=== PATIENT | female | born 1980 | race American Indian/Alaskan Native ===

== ENCOUNTER 2019-03-02 18:58 | Inpatient (IN) | payer OTHER ==
[~2019-03-02] VITALS: Ht 160 cm; Wt 68.0 kg
[2019-03-02 19:17] VITALS: BP_SYST 152
[2019-03-02 20:16] LABS: BILIRUBIN,URINE NEGATIVE (NEGATIVE); CLARITY/URINE CLEAR (CLEAR); COLOR,URINE YELLOW (YELLOW); GLUCOSE,URINE NEGATIVE (NEGATIVE); KETONES,URINE NEGATIVE (NEGATIVE); LEUKOCYTE ESTERASE ,URINE 1+ (NEGATIVE); NITRITE, URINE NEGATIVE (NEGATIVE); PROTEIN URINE NEGATIVE (NEGATIVE); UROBILINOGEN,URINE 0.2 (0.2-1.0)
[2019-03-02 20:22] LABS: BASOPHILS % (AUTO) 0.4 % (0.0-2.0); EOSINOPHILS # (AUTO) 0.3 K/uL (0.0-0.4); EOSINOPHILS % (AUTO) 4.1 % (0.0-4.0); HEMATOCRIT 32.8 % (36-48); HEMOGLOBIN 10.3 g/dL (12.0-16.0); LYMPHOCYTES # (AUTO) 1.5 K/uL (1.0-5.5); LYMPHOCYTES % (AUTO) 21.4 % (20.5-51.5); MEAN CORPUSCULAR HEMOGLOBIN 25 pg (27-31); MEAN CORPUSCULAR HGB CONC 31 % (32-36); MEAN CORPUSCULAR VOLUME 78 fL (79.0-98.0); MONOCYTES # (AUTO) 0.4 K/uL (0.0-1.0); MONOCYTES % (AUTO) 4.9 % (1.7-9.3); NEUTROPHILS % (AUTO) 69.2 % (40.0-70.0); PLATELET COUNT (AUTO) 257 K/uL (130-430); WHITE BLOOD COUNT (AUTO) 7.2 K/uL (4.8-10.8)
[2019-03-02 20:30] LABS: BLOOD, URINE TRACE (NEGATIVE)
[2019-03-02 20:31] LABS: BACTERIA,URINE FEW /HPF (None Seen); MUCUS,URINE None Seen /LPF (None Seen); RBC,URINE 0-3 /HPF (0-3)
[2019-03-02] MEDS ORDERED: MORPHINE 4 MG/ML INJ. SYRINGE IVP ONE (20:45)
[2019-03-02] MEDS ORDERED: NACL 0.9% 1,000 ML IV ONE (20:45)
[2019-03-02] MEDS ORDERED: cefTRIAXone 1 GM IVPB PREMIX 50 ML IV ONE (20:45)
[2019-03-02] MEDS ORDERED: ACETAMINOPHEN 325 MG TABLET PO PRN (22:00)
[2019-03-02] MEDS ORDERED: ONDANSETRON HCL 4 MG/2 ML VIAL IVP PRN (22:00)
[2019-03-02] MEDS ORDERED: HYDROcodone/ACETAMIN 5-325 MG TAB (NORCO/ VICODIN) PO PRN (22:00)
[2019-03-02 22:29] LABS: PROTHROMBIN TIME 9.8 SECS (9.5-12.5)
[2019-03-02 22:34] LABS: BARBITURATE, URINE NEGATIVE (NEG <=200); BENZODIAZEPINE, URINE POSITIVE (NEG <=150); CANNABINOID, URINE NEGATIVE (NEG <=50); COCAINE, URINE NEGATIVE (NEG <=150); METHAMPHETAMINES SCREEN,URINE NEGATIVE (NEG <=500); OPIATE, URINE POSITIVE (NEG <=100); PHENCYCLIDINE SCREEN,URINE NEGATIVE (NEG <=25); UR TRICYCLIC ANTIDEPRESSANTS NEGATIVE (NEG <=300); URINE AMPHETAMINE NEGATIVE (NEG <=500); URINE METHADONE NEGATIVE (NEG <=200); URINE OXYCODONE SCREEN NEGATIVE (NEG <=100); URINE PROPOXYPHENE SCREEN NEGATIVE (NEG <=300)
[2019-03-02 22:39] LABS: PHOSPHORUS 3.5 mg/dL (2.7-4.5)
[2019-03-02 23:08] VITALS: BP_SYST 140
[2019-03-02] MEDS: NACL 0.9% 1,000 ML IV SCH (23:31)
[2019-03-03] VITALS: BP_SYST 135
[2019-03-03] MEDS: MORPHINE 2 MG/ML INJ. SYRINGE IVP PRN ×3 (00:19→11:07)
[2019-03-03 01:23] LABS: THYROID STIMULATING HORMONE 1.21 uIu/mL (0.36-3.74)
[2019-03-03 01:44] LABS: CALCIUM 8.2 mg/dL (8.4-11.0); CREATININE 0.65 mg/dL (0.55-1.30); POTASSIUM 3.7 mmol/L (3.5-5.1); TOTAL BILIRUBIN 0.2 mg/dL (0.0-1.0)
[2019-03-03 07:13] LABS: BASOPHILS % (AUTO) 0.7 % (0.0-2.0); EOSINOPHILS # (AUTO) 0.4 K/uL (0.0-0.4); EOSINOPHILS % (AUTO) 5.7 % (0.0-4.0); HEMATOCRIT 29.1 % (36-48); HEMOGLOBIN 9.1 g/dL (12.0-16.0); LYMPHOCYTES # (AUTO) 2.2 K/uL (1.0-5.5); LYMPHOCYTES % (AUTO) 32.6 % (20.5-51.5); MEAN CORPUSCULAR HEMOGLOBIN 25 pg (27-31); MEAN CORPUSCULAR HGB CONC 31 % (32-36); MONOCYTES # (AUTO) 0.4 K/uL (0.0-1.0); MONOCYTES % (AUTO) 6.4 % (1.7-9.3); NEUTROPHILS # (AUTO) 3.7 K/uL (1.8-7.7); NEUTROPHILS % (AUTO) 54.6 % (40.0-70.0); PLATELET COUNT (AUTO) 222 K/uL (130-430); RED BLOOD CELL COUNT(AUTO) 3.66 MIL/uL (4.2-6.2); RED CELL DISTRIBUTION WIDTH 18.8 % (9.0-15.0); WHITE BLOOD COUNT (AUTO) 6.7 K/uL (4.8-10.8)
[2019-03-03 07:32] LABS: POTASSIUM 3.8 mmol/L (3.5-5.1)
[2019-03-03 07:50] LABS: CREATININE 0.56 mg/dL (0.55-1.30)
[2019-03-03 07:55] LABS: MEAN CORPUSCULAR VOLUME 80 fL (79.0-98.0)
[2019-03-03 08:00] VITALS: BP_SYST 124
[2019-03-03] MEDS: NACL 0.9% 1,000 ML IV SCH (08:16)
[2019-03-03 08:52] LABS: CALCIUM 7.6 mg/dL (8.4-11.0)
[2019-03-03] MEDS ORDERED: DOCUSATE SODIUM 100 MG CAPSULE PO SCH (09:00)
[2019-03-03] MEDS ORDERED: cefTRIAXone 1 GM in D5W 50 ML IV SCH (09:00)
[2019-03-03] MEDS ORDERED: TAMSULOSIN HCL 0.4 MG CAP PO SCH (09:00)
[2019-03-03 12:00] VITALS: BP_SYST 133
[2019-03-03] MEDS ORDERED: HYDR-4272 PO (13:58)
[2019-03-03] MEDS ORDERED: SULF1TAB3 PO (13:58)
[2019-03-03 14:28] VITALS: BP_SYST 135
== END 2019-03-03 15:36 | disposition home or self-care (01) | DRG 465 ==
LOC: SED 18:58 → SMU 21:45
PROVIDERS: ADMIT Student in an Organized Health Care Education/Training Program; ATTEND Student in an Organized Health Care Education/Training Program
DX: N13.30 Unspecified hydronephrosis (principal); N39.0 Urinary tract infection, site not specified; N12 Tubulo-interstitial nephritis, not specified as acute or chronic
CPT/HCPCS: 36415; 71045; 80048; 80053; 80061; 80307; 81000-TC; 83036; 83735-TC; 83880; 84100-TC; 84443-TC; 84484; 85025; 85610-TC; 85730-TC; 87040-TC; 87081; 87086; 96365; 96375; 99285; J0696; J2270; J2405; J7030; J7060

== ENCOUNTER 2019-03-06 00:53 | Inpatient (IN) | payer OTHER ==
[~2019-03-06] VITALS: Ht 160 cm; Wt 71.2 kg
[~2019-03-06 00:53] MED LIST: HYDR-4272 PO; SULF1TAB3 PO
[2019-03-06 01:10] VITALS: BP_SYST 139
--- NOTE | 2019-03-06 01:12 | NUR ---
Patient to ER bed 4 for evaluation. Side rails up.
--- NOTE | 2019-03-06 01:13 | NUR ---
Patient brought in with complaining of right flank starting at 1900 with 2 episodes of vomitting. Pain 10/10. Patient was admitted on for kidney stone obstruction reports she was discharged because kidney stone unobstructed. No other complaints/injuries per patient or as noted. Will continue to monitor.
--- NOTE | 2019-03-06 01:15 | NUR ---
ER Dr. Ocampo at bedside examining patient.
[2019-03-06] MEDS ORDERED: NACL 0.9% 1,000 ML IV ONE ×3 (01:40→02:15)
[2019-03-06] MEDS ORDERED: ONDANSETRON HCL 4 MG/2 ML VIAL IVP ONE (01:45)
[2019-03-06] MEDS ORDERED: KETOROLAC TROMETHAMINE 30 MG VIAL IVP ONE (01:45)
--- NOTE | 2019-03-06 01:50 | NUR ---
# 20 gauge angiocath placed to LAC. Use of asceptic technique. Opsite placed over site. Blood return noted. Blood for lab drawn from site. Flushed with 10 cc of normal saline. No evidence of infiltration noted. Patient tolerated well.
[2019-03-06] MEDS ORDERED: MORPHINE 4 MG/ML INJ. SYRINGE IVP ONE ×2 (02:15→03:00)
[2019-03-06] MEDS ORDERED: DIPHENHYDRAMINE INJ 50 MG/ML VIAL IVP ONE ×2 (02:15→03:00)
[2019-03-06 02:28] LABS: CALCIUM 8.6 mg/dL (8.4-11.0); CREATININE 0.82 mg/dL (0.55-1.30); POTASSIUM 3.6 mmol/L (3.5-5.1)
[2019-03-06 02:29] LABS: BASOPHILS % (AUTO) 0.5 % (0.0-2.0); EOSINOPHILS # (AUTO) 0.4 K/uL (0.0-0.4); EOSINOPHILS % (AUTO) 3.9 % (0.0-4.0); HEMATOCRIT 34.9 % (36-48); LYMPHOCYTES # (AUTO) 2.3 K/uL (1.0-5.5); LYMPHOCYTES % (AUTO) 24.3 % (20.5-51.5); MEAN CORPUSCULAR HEMOGLOBIN 25 pg (27-31); MEAN CORPUSCULAR HGB CONC 32 % (32-36); MEAN CORPUSCULAR VOLUME 78 fL (79.0-98.0); MONOCYTES # (AUTO) 0.4 K/uL (0.0-1.0); MONOCYTES % (AUTO) 4.4 % (1.7-9.3); NEUTROPHILS # (AUTO) 6.3 K/uL (1.8-7.7); NEUTROPHILS % (AUTO) 66.9 % (40.0-70.0); PLATELET COUNT (AUTO) 313 K/uL (130-430); RED BLOOD CELL COUNT(AUTO) 4.46 MIL/uL (4.2-6.2); RED CELL DISTRIBUTION WIDTH 18.8 % (9.0-15.0); WHITE BLOOD COUNT (AUTO) 9.4 K/uL (4.8-10.8)
[2019-03-06 02:35] LABS: BILIRUBIN,URINE NEGATIVE (NEGATIVE); BLOOD, URINE 3+ (NEGATIVE); CLARITY/URINE CLEAR (CLEAR); COLOR,URINE YELLOW (YELLOW); GLUCOSE,URINE NEGATIVE (NEGATIVE); KETONES,URINE NEGATIVE (NEGATIVE); LEUKOCYTE ESTERASE ,URINE 3+ (NEGATIVE); NITRITE, URINE NEGATIVE (NEGATIVE); PH,URINE 7.5 (5.0-8.0); PROTEIN URINE NEGATIVE (NEGATIVE); UROBILINOGEN,URINE 0.2 (0.2-1.0)
[2019-03-06 02:42] LABS: ALBUMIN 3.7 g/dL (3.4-4.8); TOTAL BILIRUBIN 0.4 mg/dL (0.0-1.0)
--- NOTE | 2019-03-06 02:44 | NUR ---
Md notifed of pain 11/21. Patient requesting more pain medication
[2019-03-06 02:46] LABS: RBC,URINE 50-80 /HPF (0-3); WBC,URINE 20-50 /HPF (0-3)
[2019-03-06 02:47] LABS: BACTERIA,URINE FEW /HPF (None Seen); YEAST,URINE Few /HPF (None Seen)
[2019-03-06] MEDS ORDERED: cefTRIAXone 1 GM IVPB PREMIX 50 ML IV ONE (03:00)
--- NOTE | 2019-03-06 03:05 | NUR ---
Blood cultures drawn, prior to administration of antibiotic.
--- NOTE | 2019-03-06 03:11 | NUR ---
report given to RIGO Patel
[2019-03-06] MEDS ORDERED: MORPHINE 2 MG/ML INJ. SYRINGE IVP PRN ×2 (04:00→08:30)
--- NOTE | 2019-03-06 04:04 | NUR ---
adPatient will be admitted to care of Dr. Cervantes. Admitted to Med Surg unit. Will go to room 118 A. Belongings list completed. Summary report printed. Report will be given at bedside.
--- NOTE | 2019-03-06 04:05 | NUR ---
Transfer to [facility]. IV present no sign or symptom of infiltration.
--- NOTE | 2019-03-06 04:08 | NUR ---
ADMISSION: The patient, ZEYAD RAMIREZ, 38 y/o, F admitted by DR SEGAL WITH THE DIAGNOSIS OF INTRACTABLE FLANK PAIN , HYDRONEPHROSIS AND UTI TO ROOM 118 A .
[2019-03-06 04:22] VITALS: BP_SYST 116
--- NOTE | 2019-03-06 05:30 | NUR ---
Rounds Pt ambulated to the bathroom and voided. Steady gait. Back to bed. Call light within reach. To monitor.
[2019-03-06] MEDS ORDERED: KCL 20 mEq in NS 1000 mL 1,000 ML IV ONE (06:26)
[2019-03-06] MEDS: KCL 20 mEq in NS 1000 mL 1,000 ML IV SCH ×3 (06:31→18:06)
--- NOTE | 2019-03-06 06:36 | NUR ---
Closing notes Pt asleep easily arousable. No s/s distress noted. Pt states pain is better at this time 08/22. IVF started at ordered rate L. AC 20JG no s/s infiltration. CAll light within reach. To endorse to AM nurse.
--- NOTE | 2019-03-06 06:42 | NUR ---
F/U 2nd Lactic acid Called lab and spoke with Isabell to f/u 2nd lactic acid. She will call back.
--- NOTE | 2019-03-06 06:53 | NUR ---
Received call from Lab Spoke with Isabell from lab and per tech, received draw from [facility] lactic acid at 0653. To endorse to Am nurse.
--- NOTE | 2019-03-06 07:30 | NUR ---
Opening note patient resting in bed at this time, no complaints of pain. Iv patent, intact, and infusing fluids as ordered. No adverse side effects noted. No SOB. On safety and aspiration precautions, HOB kept elevated, 3 side rails up, call light within reach. Patient in stable condition. Will continue to monitor.
--- NOTE | 2019-03-06 07:46 | NUR ---
PAGED PAGED BRET DHILLON AT [phone] SPOKE WITH TYLER.
--- NOTE | 2019-03-06 08:00 | NUR ---
Pain Patient complained of continuous pain. Dr. manzo called back. new orders noted.
[2019-03-06 08:12] VITALS: BP_SYST 120
[2019-03-06] MEDS: ONDANSETRON HCL 4 MG/2 ML VIAL IVP PRN ×3 (09:15→18:20)
--- NOTE | 2019-03-06 09:30 | NUR ---
medications pain medication given as ordered, tolerated well. No nausea, no vomiting noted at this time.
--- NOTE | 2019-03-06 10:03 | NUR ---
UROLOGY CONSULT CONSULTATION PAGED REASON FOR CONSULTATION:OBSTRUCTED STENT WAS CONSULT CALLED?Y PERSON WHO WAS NOTIFIED:JASWANT CONSULTING PHYSICIAN:LUZ LUTZ LEATHER PIECE INSPECTOR SPECIALTY:UROLOGY LEATHER PIECE INSPECTOR PHONE NUMBER:[phone] REQUESTING PHYSICIAN:BRET DHILLON DOCTOR NOT CONTRACTED WITH INSURANCE
--- NOTE | 2019-03-06 11:00 | NUR ---
Rounds Patient resting in bed at this time, no complaints of pain. Iv patent, intact, and infusing fluids as ordered. No adverse side effects noted.
--- NOTE | 2019-03-06 11:13 | NUR ---
PAGED PAGED BRET DHILLON AT [phone] SPOKE WITH CANDIDO.
[2019-03-06] MEDS ORDERED: FAMOTIDINE 20 MG TABLET PO ONE (11:30)
[2019-03-06 12:00] VITALS: BP_SYST 109
[2019-03-06] MEDS: cefTRIAXone 1 GM in D5W 50 ML IV SCH (12:32)
[2019-03-06] MEDS: MORPHINE 2 MG/ML INJ. SYRINGE IVP PRN ×3 (12:35→23:21)
--- NOTE | 2019-03-06 12:35 | NUR ---
Pain Patient continued to complain of pain. Dr. manzo at bedside to increase frequency of pain medication to every 3 hours. Medication given as ordered. No adverse side effects noted.
--- NOTE | 2019-03-06 12:38 | NUR ---
CASE MANAGEMENT: REGARDING UROLOGIST CONSULT FOR DR. ANNA NOT ACCEPTING PATIENT INSURANCE. SPOKE WITH RUBEN AT ADMINISTRATION, AMOL HAS BEEN FAXED TO DR. ANNA'S OFFICE.
--- NOTE | 2019-03-06 14:11 | NUR ---
Rounds patient resting in bed at this time, no complaints of pain. IV patent, intact, and infusing fluids as ordered.
[2019-03-06] MEDS: METOCLOPRAMIDE HCL 10 MG/2 ML VIAL IVP PRN (15:50)
[2019-03-06] MEDS: HYDROmorphone 1 MG INJ. 1 MG/ML AMPUL IVP PRN ×2 (15:51→20:56)
--- NOTE | 2019-03-06 16:00 | NUR ---
Rounds patient sitting up in bed at this time, no SOB. No acute distress. Iv patent, intact, and infusing fluids as ordered. No adverse side effects noted.
[2019-03-06 16:56] VITALS: BP_SYST 142
--- NOTE | 2019-03-06 18:20 | NUR ---
pain/ nausea patient complaining of pain and nausea. medications given as ordered. no adverse side effects noted.
--- NOTE | 2019-03-06 18:45 | NUR ---
Closing note patient resting in bed at this time, no complaints of pain. Iv patent, intact, and infusing fluids as ordered. No adverse side effects noted. No SOB. On safety and aspiration precautions, HOB kept elevated, 3 side rails up, call light within reach. Patient in stable condition. All needs met.
[2019-03-06 20:54] VITALS: BP_SYST 129
--- NOTE | 2019-03-06 20:54 | NUR ---
Opening notes Pt resting in bed, no s/s distress noted. VSS, afebrile. Call light within reach. Bed low, locked, siderails up x2. Will continue to monitor.
[2019-03-07] VITALS: BP_SYST 128
[2019-03-07] MEDS: ONDANSETRON HCL 4 MG/2 ML VIAL IVP PRN ×4 (00:44→22:19)
--- NOTE | 2019-03-07 00:44 | NUR ---
Nausea Pt awake, resting in bed c/o nausea, medicated with Zofran 4mg IVP as needed. Call light within reach. To monitor.
[2019-03-07] MEDS: HYDROmorphone 1 MG INJ. 1 MG/ML AMPUL IVP PRN ×5 (01:57→19:49)
--- NOTE | 2019-03-07 01:57 | NUR ---
Pain med Pt ambulates to the bathroom. c/o severe rt flank pain, medicated with Dilaudid 1mg IVP as needed. IVF infusing at ordered rate L. AC 20G clear and patent. Call light within reach. at bedside. To monitor.
--- NOTE | 2019-03-07 05:00 | NUR ---
Nausea Pt awake, quiet, c/o pain, nausea, and feeling hot. Temp checked 99.5. Encouraged pt to drink and water given. Pt informed Dilaudid is not due yet for pain. Pt agreeable. Pt medicated with Reglan 10mg IVP as needed for nausea. Call light within reach. Safety measures in place. To monitor.
[2019-03-07] MEDS: METOCLOPRAMIDE HCL 10 MG/2 ML VIAL IVP PRN ×2 (05:03→17:29)
[2019-03-07] MEDS: KCL 20 mEq in NS 1000 mL 1,000 ML IV SCH ×2 (05:03→20:00)
--- NOTE | 2019-03-07 05:25 | NUR ---
CLOSING NOTES/PAIN MED PT AWAKE, SITTING IN BED, TEARFUL C/O 10/10 FLANK PAIN. MEDICATED WITH DILAUDID 1MG IVP NEEDED. IVF INFUSING AT ORDERED RATE L. AC 20G NO S/S INFILTRATION. CALL LIGHT WITHIN REACH. ALL NEEDS MET THROUGHOUT THE NIGHT. BED LOW, LOCKED IN POSITION. TO ENDORSE TO AM NURSE.
[2019-03-07 07:29] VITALS: BP_SYST 134
[2019-03-07] MEDS: MORPHINE 2 MG/ML INJ. SYRINGE IVP PRN ×4 (07:56→22:20)
--- NOTE | 2019-03-07 08:00 | NUR ---
ASSUMPTION OF CARE: RECEIVED PT A/A/OX4, DX:ALTERATION IN ELIMINATION, R/T HYDRONEPHROSIS, UTI, INTRACTABLE FLANK PAIN. PT IS LYING IN BED RESTING WITH AT BEDSIDE C/O FLANK PAIN 8/10 VIA NUMERIC SCALE DESCRIBED INTERMITTENT, ACHING SENSATION, THAT IS CAUSING NAUSEA ALSO, MORPHINE 3 MG GIVEN IVP, TOLERATED WELL, IV SITE INTACT, PATENT, NO REDNESS OR SWELLING, AFEBRILE, SKIN INTACT, BREATH SOUNDS ARE CLEAR, BREATHING UNLABORED, ORIENTED TO UNIT, CALL LIGHT PLACED WITHIN REACH, WILL CONT' TO MONITOR AND ASSESS.
--- NOTE | 2019-03-07 08:10 | NUR ---
PAIN: PT C/O PAIN 8/10 VIA NUMERIC SCALE, WAS MEDICATED WITH MORPHINE 3MG IVP, AND ZOFRAN 4 MG IVP FOR NAUSEA, MEDS WERE TOLERATED WELL, WILL CONT' TO MONITOR AND ASSESS.
--- NOTE | 2019-03-07 09:00 | NUR ---
MEDICAL AUTHORIZATION SPECIALIST: MORNING MEDS GIVEN, PER ORDERED BY Kam, TOLERATED WELL, WILL CONT' TO MONITOR AND ASSESS.
[2019-03-07] MEDS: FAMOTIDINE 20 MG TABLET PO SCH (09:59)
[2019-03-07] MEDS: cefTRIAXone 1 GM in D5W 50 ML IV SCH (10:37)
--- NOTE | 2019-03-07 10:40 | NUR ---
PAIN: PT C/O RIGHT FLANK PAIN 8/10 VIA NUMERIC SCALE, DESCRIBED INTERMITTENT ACHING SENSATION, MED WAS GIVEN, TOLERATED WELL, WILL CONT' TO MONITOR AND ASSESS.
--- NOTE | 2019-03-07 11:09 | NUR ---
Uro consult follow up. Spoke with Floridalma at Dr. Helm's office. Letter of Agreement (AMOL) was received. She does not know what time Dr. Helm will come.
[2019-03-07 12:06] VITALS: BP_SYST 143
--- NOTE | 2019-03-07 12:38 | NUR ---
PAIN: PT C/O RIGHT FLANK PAIN 8/10 VIA NUMERIC SCALE, DESCRIBED INTERMITTENT ACHING SENSATION, MED WAS GIVEN, TOLERATED WELL, WILL CONT' TO MONITOR AND ASSESS.
[2019-03-07 12:40] VITALS: BP_SYST 142
--- NOTE | 2019-03-07 13:30 | NUR ---
Dr. Helm refuses to see the patient: Dr. Helm is at the station. Inform him about the consult and AMOL letter. He has said that he is aware of AMOL letter, but also states"I don't want to deal with that.". Dr. Cervantes is inform, and also the rehabilitation case coordinator. They recommend to try with other urologist, if they will accept AMOL.
--- NOTE | 2019-03-07 13:43 | NUR ---
Case mgt: I rec'd vm from Claudia? difficult to hear name and she did not identify pt name in her voice mail ,requesting call back from me to [phone]--I called her without leaving pt name but asked her to call me back asap. QUINN SIERRA Addendum: 03/07/19 at 1346 by Erica Reaagn RN Correction: Above return number for Claudia is [phone]
--- NOTE | 2019-03-07 13:57 | NUR ---
Spoke with Kirstin at Dr. Elizabeth's office. She took my number and will call me back regarding possibility of paying by AMOL.
--- NOTE | 2019-03-07 14:16 | NUR ---
Spoke with Navya in administration. was told admin would approve AMOL for Dr. Elizabeth.
--- NOTE | 2019-03-07 14:19 | NUR ---
Uro consult called: spoke with Beata regarding consult (obstructed stent; ordered by Dr. Cervantes) Dr. england ribbon blocker.
--- NOTE | 2019-03-07 14:52 | NUR ---
PAIN: PT C/O RIGHT FLANK PAIN 8/10 VIA NUMERIC SCALE, DESCRIBED INTERMITTENT ACHING SENSATION, MED WAS GIVEN, TOLERATED WELL, WILL CONT' TO MONITOR AND ASSESS.
--- NOTE | 2019-03-07 15:00 | NUR ---
: SPOKE WITH FROM [facility], STATED THAT PATIENT MAY BE DISCHARGED BY HIS STANDARDS AND F/U OUT PT WITH HER UROLOGIST. ALSO, IF DURING HER ADMISSION AT [facility] FEVER OR WBC'S GREATER THAN 18.0 OCCUR, ACUTE INTERVENTION WOULD BE NECESSARY, AND TO LET PRIMARY CARE PROVIDER KNOW. MEDICATIONS SUGGEST IN THIS CASE WOULD BE FLOMAX 0.4 MG PO QD, AND A ANTICHOLINERGIC DRUG, SUCH DITROPAN 5MG PO BID.
--- NOTE | 2019-03-07 15:20 | NUR ---
Rec'd call from Claudia at [phone]--I explained that our charge nurse Wisam indicates a urologist called back the pt's nurse, all reports were read back to that urologist, and that the urologist indicated pt is ok to f/u with her own urologist as outpt and pt would need Flomax RX--If MD determines that pt needs transfer to [facility] to see urologist (Claudia made aware pt had stents placed at [facility] in [place] recently), then we can call her at [phone] and she needs our MD contact ph#, Face sheet, all MD progress notes and transfer order faxed to them at [phone]---left message at nurse station to have Wisam call me back--QUINN SIERRA Addendum: 03/07/19 at 1626 by Erica Reagan RN I rec'd call from Dr. Cervantes indicating pt needs transfer to [facility] for urology consult, as pt still c/o pain requiring IV Dilaudid--I called matt Taylor mgr at [facility] at [phone] Cervantes indicates pt cannot discharge home and f/u as outpt due to pain level and needs the urology consult and we do not have contracted urologist here to see pt. Claudia requested me to fax MD order, face sheet, MD H&P, progress notes, meds, radiology to her at [phone], which has been faxed to her. I gave Claudia Cervantes's cell phone # for to report--Claudia will contact her team to find bed at accepting hospital (she will try [facility] first) and urologist . Transfer packet and xray cd taken to nursing station and nurse Wisam notified of this. I gave Claudia the nursing station ph # also. QUINN RN
--- NOTE | 2019-03-07 16:00 | NUR ---
VISIT: AT BEDSIDE FOR ASSESSMENT OF PT, PT REQUESTED TO HAVE PCP CHANGED TO SOMEONE ELSE, EXPLAINED THAT SHE WILL HAVE TO FIND A DOCTOR THAT IS WILLING TO TAKE HER CASE, PT VERBALIZES UNDERSTANDING AND AGREES.
[2019-03-07 16:58] VITALS: BP_SYST 143
[2019-03-07] MEDS: ACETAMINOPHEN 325 MG TABLET PO PRN (17:29)
--- NOTE | 2019-03-07 17:29 | NUR ---
PAIN: PT C/O RIGHT FLANK PAIN 8/10 VIA NUMERIC SCALE, DESCRIBED INTERMITTENT ACHING SENSATION, MED WAS GIVEN, TOLERATED WELL, WILL CONT' TO MONITOR AND ASSESS.
--- NOTE | 2019-03-07 19:30 | NUR ---
Opening notes Received report. Patient resting in bed. No signs of distress noted. Breathing even and unlabored. Patient complaining of pain. will medicate shortly. IV patent and intact, infusing fluids. Updated patient on plan of care. Patient verbalized understanding. Call light with the patient. Safety precautions in place.
[2019-03-07 20:00] VITALS: BP_SYST 131
--- NOTE | 2019-03-07 22:15 | NUR ---
Pain med/Nausea Patient complaining of pain and nausea. PRN medications given. Educated the action and side effects of medications. Patient verbalized understanding and tolerated well. No signs of allergic reaction noted. Breathing even and unlabored. IVF infusing well. Provided patient with jello. No other needs at this time. Call light with the patient. Safety precautions in place.
[2019-03-07] MEDS: OXYBUTYNIN CHLORIDE 5 MG TABLET PO SCH (22:19)
--- NOTE | 2019-03-08 00:30 | NUR ---
RESTING PATIENT RESTING IN BED, WATCHING TV. PATIENT COMPLAINS OF PAIN. WILL ADMINISTER PRN PAIN MEDICATIONS. NO OTHER NEEDS. CALL LIGHT WITH THE PATIENT. SAFETY PRECAUTIONS IN PLACE.
[2019-03-08] MEDS: HYDROmorphone 1 MG INJ. 1 MG/ML AMPUL IVP PRN ×4 (00:58→19:05)
[2019-03-08] MEDS: KCL 20 mEq in NS 1000 mL 1,000 ML IV SCH ×2 (00:58→10:19)
[2019-03-08 01:58] VITALS: BP_SYST 161
[2019-03-08] MEDS: MORPHINE 2 MG/ML INJ. SYRINGE IVP PRN ×4 (03:07→21:00)
--- NOTE | 2019-03-08 03:45 | NUR ---
SLEEPING PATIENT HAD RECEIVED PAIN MEDICATIONS. NO SIGNS OF DISTRESS NOTED. BREATHING EVEN AND UNLABORED. NO COMPLAINTS OF PAIN. PROVIDED PATIENT WITH ICE PACK PER PATIENT REQUEST, THEN WENT BACK TO SLEEP. NO OTHER NEEDS. CALL LIGHT WITH THE PATIENT. SAFETY PRECAUTIONS IN PLACE.
[2019-03-08] MEDS: ONDANSETRON HCL 4 MG/2 ML VIAL IVP PRN (05:58)
--- NOTE | 2019-03-08 06:41 | NUR ---
CLOSING NOTES PATIENT RESTING IN BED. NO SIGNS OF DISTRESS NOTED. BREATHING EVEN AND UNLABORED. PATIENT WAS MEDICATED WITH PRN PAIN AND NAUSEA MEDICATION. NO SIGNS OF ALLERGIC REACTION NOTED. IV PATENT AND INTACT, INFUSING FLUIDS. ALL NEEDS MET THROUGHOUT THE SHIFT. CALL LIGHT WITH THE PATIENT. SAFETY PRECAUTIONS IN PLACE. WILL ENDORSE CARE TO DAY SHIFT RN.
[2019-03-08 07:30] LABS: BASOPHILS % (AUTO) 0.3 % (0.0-2.0); EOSINOPHILS # (AUTO) 0.2 K/uL (0.0-0.4); EOSINOPHILS % (AUTO) 1.9 % (0.0-4.0); HEMATOCRIT 30.2 % (36-48); HEMOGLOBIN 9.4 g/dL (12.0-16.0); LYMPHOCYTES # (AUTO) 0.8 K/uL (1.0-5.5); LYMPHOCYTES % (AUTO) 5.9 % (20.5-51.5); MEAN CORPUSCULAR HEMOGLOBIN 25 pg (27-31); MEAN CORPUSCULAR HGB CONC 31 % (32-36); MEAN CORPUSCULAR VOLUME 79 fL (79.0-98.0); MONOCYTES % (AUTO) 7.4 % (1.7-9.3); NEUTROPHILS # (AUTO) 11.1 K/uL (1.8-7.7); NEUTROPHILS % (AUTO) 84.5 % (40.0-70.0); PLATELET COUNT (AUTO) 246 K/uL (130-430); RED BLOOD CELL COUNT(AUTO) 3.82 MIL/uL (4.2-6.2); RED CELL DISTRIBUTION WIDTH 18.2 % (9.0-15.0); WHITE BLOOD COUNT (AUTO) 13.1 K/uL (4.8-10.8)
[2019-03-08 07:40] VITALS: BP_SYST 148
--- NOTE | 2019-03-08 07:43 | NUR ---
Initial note: Patient is alert, oriented x4, states still having right flank sharp pain 7/10, but better than before got pain shot. She is on Normal Saline + 20 mEq of KCL IVF at 100 ml/hr infusing well via left AC 20G, no sign of infiltration. Will continue monitor.
[2019-03-08 07:47] LABS: CALCIUM 8.7 mg/dL (8.4-11.0); CREATININE 0.8 mg/dL (0.55-1.30); POTASSIUM 4.7 mmol/L (3.5-5.1)
[2019-03-08] MEDS: OXYBUTYNIN CHLORIDE 5 MG TABLET PO SCH ×3 (08:13→20:59)
[2019-03-08] MEDS: FAMOTIDINE 20 MG TABLET PO SCH (08:13)
[2019-03-08] MEDS: ACETAMINOPHEN 325 MG TABLET PO PRN ×2 (08:15→16:46)
[2019-03-08] MEDS: METOCLOPRAMIDE HCL 10 MG/2 ML VIAL IVP PRN (08:17)
[2019-03-08] MEDS ORDERED: TAMSULOSIN HCL 0.4 MG CAP PO SCH (09:00)
--- NOTE | 2019-03-08 10:00 | NUR ---
Sepsis protocol: Got a call back from because patient has fever 100.3, RI=626, and WBC=13.1. Inform the MD that the condition meet Sepsis protocol, but Dr. Cervantes said just order B/C and has ID consult, she doesn't want Lactic acid or IV bolus because the patient is already on IVF at 100 ml/hr. Will continue monitor.
--- NOTE | 2019-03-08 10:04 | NUR ---
ATTTENDING MD DR SEGAL WAS PAGED RE: ORDER FOR SEPSIS PROTOCOL. SPOKE TO CATIA.
--- NOTE | 2019-03-08 10:25 | NUR ---
CONSULTATION PAGED/CALLED Reason for Consultation: [] POSS PYELONEPHRITIS Person Who was Notified: [] ZUHAIR Consulting Physician: [] DR Sina BYRD [address] Messenger Specialty: [] ID Ordering Physician: [] DR Jonelle SEGAL
--- NOTE | 2019-03-08 10:47 | NUR ---
DC Planning: Phone dr. Cervantes and provided her with dr. Paige at [facility] phone # [phone] for peer to peer review for transfer to [employer] work.
--- NOTE | 2019-03-08 11:00 | NUR ---
Resting: Patient is sleeping comfortable, no sign of distress with her at bedside.
[2019-03-08 11:24] VITALS: BP_SYST 114
[2019-03-08] MEDS: cefTRIAXone 1 GM in D5W 50 ML IV SCH (11:42)
--- NOTE | 2019-03-08 13:12 | NUR ---
Shower: Patient is stable, comfortable with the pain now, requests for a shower. Assist her get ready for shower. The is beside the patient during shower.
[2019-03-08 15:16] VITALS: BP_SYST 135
[2019-03-08 15:25] VITALS: BP_SYST 133
--- NOTE | 2019-03-08 15:50 | NUR ---
Discharge Planning: Pt going to [facility] [phone] [id number] [place] [address] [phone] 8:45pm P/U patient packet taken to nurse station, nurse made aware.
--- NOTE | 2019-03-08 15:55 | NUR ---
MD sparks: Dr. Cervantes makes round. Make her aware that patient will be transferred to [facility] under care of Theo Gallego. She has put an order for DC.
--- NOTE | 2019-03-08 15:58 | NUR ---
DC plan: The classification case manager is in the room with the patient and the and spoke about transfer to another hospital.
[2019-03-08] MEDS ORDERED: FLUCONAZOLE 200 MG TABLET (DIFLUCAN) PO ONE (16:00)
--- NOTE | 2019-03-08 16:00 | NUR ---
Call and give report to susi Boudreaux RN,at [facility].
[2019-03-08] MEDS ORDERED: ROCPM1 IV (16:09)
[2019-03-08] MEDS ORDERED: TAMS-11 PO (16:09)
[2019-03-08] MEDS ORDERED: OXYB5TAB11 PO (16:10)
[2019-03-08] MEDS ORDERED: ONDA4TAB5 IV (16:10)
[2019-03-08] MEDS ORDERED: FAMO20TA8 PO (16:14)
[2019-03-08] MEDS ORDERED: FLUCONAZOLE 100 mg/ NS 50 ML IV SCH (17:45)
--- NOTE | 2019-03-08 18:04 | NUR ---
ID round: Dr. Crowell makes round for ID consult, and has new order.
--- NOTE | 2019-03-08 18:44 | NUR ---
Closing note: Patient is stable, no sign of distress, on NS + 20 mEq of KCL IVF at 100 ml/hr. Awaiting for transportation for transfer to [facility] between 20.45-21.00 tonight.
--- NOTE | 2019-03-08 19:30 | NUR ---
PM ASSESSMENT Received report using SBAR format and pt care was endorsed. Pt resting in bed with eyes open watching tv, no signs of acute distress or discomfort noted. Family at bedside. Breathing even and unlabored. IV patent and intact, infusing fluids at this time. Pt is aware of transfer and transfer acknowledgment sheet signed. Pt doesn't verbalize any needs at this time. Bed is locked and in lowest position, call light within reach, will cont to monitor.
[2019-03-08 20:00] VITALS: BP_SYST 129
--- NOTE | 2019-03-08 21:30 | NUR ---
PT TRANSFERRED Ambulance here to transfer pt to [facility]. Report already given to receiving RN. Report given to EMT at bedside. Transfer packet with Transfer Orders and Medication Reconciliation form given to EMT with report. Exitcare provided. [facility] ID band removed, replaced with ID band with pt's name and . All belongings sent with patient. Patient left floor via gurney escorted by EMT in no distress.
== END 2019-03-08 21:30 | disposition short-term general hospital (02) | DRG 465 ==
LOC: SED 00:53 → SMU 03:51
PROVIDERS: ADMIT Internal Medicine; ATTEND Internal Medicine
DX: N13.2 Hydronephrosis with renal and ureteral calculous obstruction (principal); B37.49 Other urogenital candidiasis; Z79.899 Other long term (current) drug therapy; Z87.442 Personal history of urinary calculi; Z87.440 Personal history of urinary (tract) infections; Z98.51 Tubal ligation status
CPT/HCPCS: 36415; 76770; 80048; 80053; 81000-TC; 81025; 83605; 84703; 85025; 87040-TC; 87081; 87086; 96361; 96365; 96375; 96376; 99285; J0696; J1170; J1200; J1885; J2270; J2405; J2765; J3480; J7030; J7060